=== PATIENT | female | born 1945 | race Caucasian/White ===

== ENCOUNTER 2018-01-16 12:09 | Outpatient (CLI) | payer MEDICARE, BC ==
[~2018-01-16] VITALS: Ht 160 cm; Wt 103.2 kg
--- NOTE | ~2018-01-16 | OP ---
PATIENT NAME: ANDREZ GUTIERREZ MEDICAL RECORD: [id number] :47 LOCATION:D.CAT ADMISSION DATE: SURGEON: CRISTAL ROSENBERG MD DATE OF OPERATION: 01/16/2018 PROCEDURE: Left heart cath, plus 4-vessel, plus PTCA stenting of the diagonal, right femoral artery approach. CATHETERS: A 5-Nigerien sheath, 5/4 left and right Keon, 5/4 pig. The procedure was well tolerated and the patient was returned to esquivel, sheath removed. FINDINGS: Left ventriculography in 30-degree AGUILAR view: Normal wall motion and normal systolic function. CORONARY ANATOMY: LEFT MAIN: Left main is free of disease. LAD: A smallest vessel, actually has a large diagonal system with first diagonal having about 80% stenosis, larger than the LAD itself. CIRCUMFLEX: Free of disease. RIGHT CORONARY ARTERY: Dominant artery and is free of disease. 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 DESCRIPTION OF PROCEDURE: Next, the catheter was pulled proximally. The right common carotid was selectively engaged. This shows smooth-walled vessel, free of disease. Right internal carotid artery is smooth-walled vessel, free of disease. Right external carotid is smooth-walled vessel, free of disease. Next, the catheter was pulled more proximally and the left carotid artery was engaged. This shows a smooth-walled common carotid free of disease, smooth-walled left internal carotid free of disease and a smooth-walled left external carotid free of disease. Next, after a 5-Nigerien sheath was exchanged for a 6-Nigerien sheath, a JL4 guiding catheter provided excellent guide catheter support followed by 300 cm Whisper wire was placed across the occluded LAD down the portion of this vessel. Stent deployed was a 2.5 x 12 mm Fer drug-eluting stent up to 14 atmospheres. Final angiography shows excellent resolution of 80% stenosis, no significant residual. NANY flow was 3 throughout the procedure. Integrilin and heparin were used during the case. Brilinta was loaded in the lab. TRANSINT:[id number] Voice Confirmation ID: [id number] DOCUMENT ID: [id number] CRISTAL ROSENBERG MD at 1305 CC: [id number] DICTATION DATE: 01/16/18 1434 BAG PRINTER: 01/16/18 1614 DEP CLI 01/16/18 [facility] [address] [place] [address]
--- NOTE | ~2018-01-16 | HEMODYNAMI ---
PATIENT:ANDREZ GUTIERREZ MEDICAL RECORD: [id number] : 47 LOCATION:DTAMMY ADMISSION DATE: 01/16/18 Generatedon:01/16/201814:32 Patient name: ANDREZ GUTIERREZ Patient #: [id number] SSN: : 1945 Date of study: 01/16/2018 Page: Of Hemodynamic Procedure Report Patient Data Patient Demographics Procedure consent was obtained First Name: ANDREZ Gender: Female Last Name: MATT : 1945 Patient #: [id number] Age: 72 year(s) Race: Unknown Additional ID: [id number] Contact details Address: [address] [place] [address] State: [place] City: [place] Zip code: [address] Past Medical History Allergies Allergen Reaction Date Comments Reported Sulfa drugs 01/16/2018 Admission Admission Data Admission Date: 01/16/2018 Admission Time: 12:09 Lab Results Lab Result Date: 01/16/2018 Lab Result Time: 0:00 Biochemistry Name Units Result Min Max BUN mg/dl 14 --(--*-)-- 7 18 Creatinine mg/dl 0.9 --(-*--)-- 0.6 1.3 CBC Name Units Result Min Max Hemoglobin g/dl 15.3 --(-*--)-- 13.5 17.5 Procedure Procedure Types Cath Procedure Diagnostic Procedure [facility] w/Coronaries Sedation Charges Moderate Sedation up to 15 minutes PCI Procedure Coronary Stent Coronary Stent Initial Peripheral Cath Diagnostic Procedure Speed Winder Peripheral Procedures Four Vessel Arteriogram Procedure Description Procedure Date Procedure Date: 01/16/2018 Procedure Start Time: 14:00 Procedure End Time: 14:26 Procedure Staff Name Function Robbin Ho MD Performing Physician Jason Mandel RT Color Separation Photographer Anna Arzate RT Monitor Megan Madsen RT Scrub Janae Willard RN Color Separation Photographer Olga Martin RN Color Separation Photographer Procedure Data Cath Procedure Fluoroscopy Diagnostic fluoroscopy Total fluoroscopy Time: 6.6 time: 6.6 min min Diagnostic fluoroscopy Total fluoroscopy dose: dose: 1174 mGy 1174 mGy Contrast Material Contrast Material Type Amount (ml) Isovue 300 152 Entry Location Entry Primary Successful Side Size Upsize Upsize Entry Closure Succes sful Closure Location (Fr) 1 (Fr) 2 (Fr) Remarks Device Remarks Femoral Right 5 Fr 6 Fr Exoseal artery Short Estimated blood loss: 10 ml Diagnostic catheters Device Type Used For End Catheter Placement MULTIPACK JL 4.0 5Fr Procedure catheter MULTIPACK 3DRC 5Fr Procedure catheter MULTIPACK Pigtail 5 Fr Procedure catheter Procedure Complications No complications Procedure Medications Medication Administration Route Dosage 0.9% NaCl I.V. 100 ml/hr Lidocaine 2% added to field 20 Heparin Flush Bag added to field 2 bags (1000units/500ml NS) Oxygen etCO2 Nasal cannula 2 l/min Versed I.V. 2 mg Fentanyl I.V. 100 mcg Versed I.V. 1 mg Fentanyl I.V. 50 mcg Heparin Bolus I.V. 4000 units Integrilin (Bolus I.V. 9 ml 2mg/ml) Brilinta P.O. 180 mg Hemodynamics Rest HGB: 15.3 (g/dl) Heart Rate: 81 (bpm) Pressure Samples Time Site Value (mmHg) Purpose Heart Use Rate(bpm) 14:09 LV 168/21,28 Snapshot 87 14:09 AO 157/81(114) Pullback 72 Gradients Valve Time Site Site 2 Mean SEP/DFP Peak To Heart Use 1 (mmHg) (sec/min) Peak Rate (mmHg) (bpm) Aortic 14:09 LV AO 26 15 72 157/81(114) Calculations Valve P-P Mean Valve Index Valve Source Name Gradient Area Flow (cm2) Aortic 26 26 Snapshots Pre Cath Intra NCS Post Cath Vital Signs Time Heart Resp SPO2 etCO2 NIBP (mmHg) Rhythm Pain Sedation Rate (ipm) (%) (mmHg) Status Level (bpm) 13:46:38 78 21 96 31 152/81(107) NSR 0 (11) 10(A) , No pain 13:50:50 79 18 95 27.1 149/78(104) NSR 0 (11) 10(A) , No pain 13:55:02 77 13 97 23 126/75(86) NSR 0 (11) 10(A) , No pain 13:59:14 82 15 95 24.8 144/70(101) NSR 0 (11) 10(A) , No pain 14:03:32 84 32 97 26.3 138/75(110) NSR 0 (11) 10(A) , No pain 14:07:48 89 30 98 29.3 151/75(118) NSR 0 (11) 10(A) , No pain 14:12:10 86 33 97 23 144/70(100) NSR 0 (11) 10(A) , No pain 14:16:28 87 15 99 27.1 115/70(103) NSR 0 (11) 10(A) , No pain 14:21:27 87 14 98 24.1 154/75(111) NSR 0 (11) 10(A) , No pain 14:25:45 80 39 98 25.5 137/75(104) NSR 0 (11) 10(A) , No pain Medications Time Medication Route Dose Verified Delivered Reason Notes Effectiveness by by 13:49:59 0.9% NaCl I.V. 100 Robbin Janae used for ml/hr [facility] procedure MD GAMBINO 13:50:08 Lidocaine 2% added 20ml Robbin Siegel for local to vial [facility] anesthetic field MD CHIRINOS 13:50:17 Heparin Flush added 2 Robbin Robbin used for Bag to bags [facility] procedure (1000units/500ml field MD CHIRINOS NS) 13:50:30 Oxygen etCO2 2 Robbin Robbin used for Nasal l/min [facility] procedure cannula MD CHIRINOS 13:59:16 Versed I.V. 2 mg Robbin Janae for sedation [facility] Willard MD, RN 13:59:24 Fentanyl I.V. 100 Robbin Janae for sedation mcg [facility] Brett Willard MD, RN 14:09:05 Versed I.V. 1 mg Robbin Janae for sedation [facility] Brett Willard MD, RN 14:09:10 Fentanyl I.V. 50 Robbin Janae for sedation mcg [facility] Brett Willard MD, RN 14:11:55 Heparin Bolus I.V. 4000 Robbin Janae for verif ied units [facility] anticoagulation w/ Dr. MD GAMBINO [place] 14:15:00 Integrilin I.V. 9 ml Robbin Janae for waste d 1 (Bolus 2mg/ml) [facility] Will[facility] anticoagulation jose angel CHIRINOS RN 14:15:43 Brilinta P.O. 180 Robbin Janae for mg [facility] Willard anticoagulation skiver box toe Log Time Note 13::33 Signed procedure consent form obtained from patient. 13:20:36 Time tracking: Regular hours (M-F 7:00 - 5:00) 13:20:39 Plan of Care:Hemodynamics will remain stable., Cardiac rhythm will remain stable., Comfort level will be maintained., Respiratory function will remain adequate., Patient/ family verbilizes understanding of procedure., Procedure tolerated without complication., Recovers from procedure without complications.. 13:22:22 Patient allergic to Sulfa drugs 13:22:35 H&P Date Dictated: 12/22/2017 Within 30 days and on chart., H&P Addendum completed by physician on day of procedure. (MUST COMPLETE FOR ALL OUTPATIENTS). 13:23:26 Lab Result : BUN 14 mg/dl 13::26 Lab Result : Hemoglobin 15.3 g/dl 13:23: Lab Result : Creatinine 0.9 mg/dl 13:31:10 Jason Mandel RT(R) sent for patient. Start room use. 13:37:17 Patient received from Pre/Post Procedure Room to CCL 2 Alert and oriented. Tansferred to table in Supine position. 13:37:18 Warm blankets applied, and glynn hugger turned on for patient comfort. 13:37:19 Correct patient and procedure confirmed by team. 13:37:19 ECG and BP/O2 sat monitors applied to patient. 13:45:26 Vital chart was started 13:45:27 Baseline sample Acquired. 13:45:30 Rhythm: sinus rhythm 13:45:32 Full Disclosure recording started 13:45:33 Pre-procedure instructions explained to patient. 13:45:33 Pre-op teaching completed and patient verbalized understanding. 13:45:35 Family in waiting room. 13:45:37 Patient NPO since Midnight. 13:45:42 Is the patient allergic to Iodine/contrast media? No. 13:45:43 Is patient on blood thinner?No 13:45:46 Patient diabetic? No. 13:45:47 ----Pre-sedation anethsthesia assessment.---- 13:45:52 Previous problem with sedation/anesthesia? No ? 13:45:53 Snore? No 13:45:55 Sleep apnea? No 13:45:57 Deviated septum? No 13:45:59 Opens mouth fully? Yes 13:46:00 Sticks out tongue? Yes 13:46:02 Airway obstruction? No ? 13:46:03 Dentures? No ? 13:46:07 Pre procedure: right dorsailis pedis pulse 2+ Normal; easily identifiable; not easily obliterated 13:46:09 Patient pain scale 0/10 ?. 13:46:21 IV patent on arrival in left hand with 0.9% NaCl at 10ml/hr. 13:46:28 Lab results completed and on chart. 13:46:31 Right groin area was prepped with chlora-prep and draped in sterile fashion 13:46:32 Alarms reviewed by R. N. 13:46:32 Sharps counted by scrub and verified by R.N. 13:46:34 Physician arrived 13:46:35 --------ALL STOP TIME OUT------ 13:46:35 Final Timeout: patient, procedure, and site verified with staff and physician. All members of the team are in agreement. 13:46:37 Right groin site verified by team. 13:46:42 Physical assessment completed. ASA score P 2 - A patient with mild systemic disease as per Robbin Ho MD. 13:46:45 Sedation plan: IV Moderate Sedation Medication:Versed, Fentanyl 13:48:35 Use device set Femoral Dx 13:48:36 ACIST Syringe (85401) opened to sterile field. 13:48:36 Bag Decanter (2001S) opened to sterile field. 13:48:37 Medline Cath Pack ([id number]) opened to sterile field. 13:48:37 DIAGNOSTIC WIRE .035 260cm J wire (045718) opened to sterile field. 13:48:41 ACIST Hand Control (97902) opened to sterile field. 13:48:41 ACIST Manifold (56383) opened to sterile field. 13:48:42 DIAGNOSTIC Multipack 5Fr catheter set (IG0304) opened to sterile field. 13:48:43 Tegaderm 4 x 4 (1626W) opened to sterile field. 13:48:47 SHEATH Prelude 5Fr 0.035 (MTM-6A-54-035) opened to sterile field. 13:49:59 0.9% NaCl 100 ml/hr I.V. was administered by Janae Willard RN; used for procedure; 13:50:08 Lidocaine 2% 20ml vial added to field was administered by Robbin Ho MD; for local anesthetic; 13:50:17 Procedure started. 13:50:17 Heparin Flush Bag (1000units/500ml NS) 2 bags added to field was administered by Robbin Ho MD; used for procedure; 13:50:30 Oxygen 2 l/min etCO2 Nasal cannula was administered by Robbin Ho MD; used for procedure; 13:53:17 Zero performed for pressure channel P1 13:59:16 Versed 2 mg I.V. was administered by Janae Willard RN; for sedation; 13:59:24 Fentanyl 100 mcg I.V. was administered by Janae Willard RN; for sedation; 14:00:15 Local anesthetic to right femoral artery with Lidocaine 2% by Robbin Ho MD.INITIAL ACCESS ONLY 14:01:17 A 5 Fr sheath was inserted into the Right Femoral artery 14:01:27 A MULTIPACK JL 4.0 5Fr catheter was advanced over the wire and used for Procedure. 14:03:15 LCA angiography performed. 14:03:18 Catheter removed. 14:03:25 A MULTIPACK 3DRC 5Fr catheter was advanced over the wire and used for Procedure. 14:04:34 RCA angiography performed. 14:07:33 Right carotid angiography performed. 14:08:09 Left carotid angiography performed. 14:08:14 Catheter removed. 14:08:24 A MULTIPACK Pigtail 5 Fr catheter was advanced over the wire and used for Procedure. 14:09:04 LV gram done using AGUILAR 14:09:05 Versed 1 mg I.V. was administered by Janae Willard RN; for sedation; 14::06 Injector settings: Ml/sec: 10, Volume: 20, 14:09:10 Fentanyl 50 mcg I.V. was administered by Janae Willard RN; for sedation; 14::42 LV hemodynamics recorded. 14:09:50 EF : 50 % 14:09:55 Catheter removed. 14:10:06 SHEATH 6FR [place] (GGC910) opened to sterile field. 14:10:14 INFLATOR Merit BasixCompak (YO6887) opened to sterile field. 14:10:14 WHISPER 300cm guide wire ([id number]) opened to sterile field. 14:11:05 GUIDE 6FR JL 4.0 catheter ([id number]) opened to sterile field. 14:11:15 Sheath upsized to a 6 Fr Short. 14:11:55 Heparin Bolus 4000 units I.V. was administered by Janae Willard RN; for anticoagulation; verified w/ Dr. Glynn 14:12:06 6 Fr JL 4 guide catheter was inserted over the wire 14:14:14 WHISPER 300 wire advanced. 14:15:00 Integrilin (Bolus 2mg/ml) 9 ml I.V. was administered by Janae Willard RN; for anticoagulation; wasted 1 ml 14:15:43 Brilinta 180 mg P.O. was administered by Janae Willard RN; for anticoagulation; 14:18:43 Place stent Inflation Number: 1 A EARNESTINE RX 2.5 x 12 stent ([id number]) was prepped and advanced across the 1st Diag. The stent was deployed at 14 ARNIE for 0:20 (min:sec). 14:19:13 Stent catheter was removed intact over wire. 14:19:14 Wire removed. 14:19:15 Guide catheter removed. 14:19:41 EXOSEAL 6Fr (EX600) opened to sterile field. 14:19:59 Sheath removed intact; hemostasis achieved with Exoseal to the Right Femoral artery. 14:21:32 Procedure ended.(Physican Out) 14:22:16 Fluoroscopy time 06.60 minutes. 14:22:20 Fluoroscopy dose: 1174 mGy 14:22:20 Flurop Dose total: 1174 14:22:24 Contrast amount:Isovue 300 152ml. 14:22:26 Sharps counted by scrub and verified by R.N. 14:22:30 Post-op/insertion site Right Femoral artery dressed using a 4 x 4 and Tegaderm. 14:22:33 Post right femoral artery:stable, soft, clean and dry 14:22:37 Post-procedure physical assessment completed. ASA score P 2 - A patient with mild systemic disease as per Robbin Ho MD. 14:22:40 Post procedure rhythm: unchanged. 14:22:42 Estimated blood loss: 10 ml 14:22:43 Post procedure instruction explained to patient.Patient verbalizes understanding. 14:22:44 Patient needs reinforcement of post procedure teaching. 14:23:38 Procedure type changed to Cath procedure, Diagnostic procedure, LHC, LHC w/Coronaries, Sedation Charges, Moderate Sedation up to 15 minutes, PCI procedure, Coronary Stent, Coronary Stent Initial, Peripheral Cath Diagnostic Procedure, Speed Winder Peripheral Procedures, Four Vessel Arteriogram 14:26:34 Procedure and supply charges have been captured, reviewed, submitted and are correct. 14:26:36 Procedure Complication : No complications 14::38 Vital chart was stopped 14::38 See physician's report for complete and final results. 14::41 Report given to Pre/Post Procedure Room. 14:26:43 Patient transfered to Pre/Post Procedure Room with Bed. 14::45 Procedure ended. 14::45 Full Disclosure recording stopped 14:26:49 End room use (Document Last) 14:27:09 FEMSTOP Gold ([id number]) opened to sterile field. 14:27:19 Femstop placed over the right femoral artery at 160 mmHg. Hemostasis achieved. Intervention Summary Intervention Notes Time ActionType Lesion and Equipment Used Action# Pressure Duration Attributes 14:18:43 Place stent 1st Diag EARNESTINE RX 2.5 x 1 14 00:20 12 stent ([id number]) Device Usage Item Name Manufacture Quantity Catalog Number Hospital Part Current Minimal Lot# / Charge Number Stock Stock Serial# Code ACIST Syringe Acist 1 86567 333203 824088 795889 20 (82253) Medical Systems Inc Bag Decanter Microtek 1 2001S 370405 57939 187240 5 () Medical Inc. Medline Cath Cardinal 1 [id number] 229954 56120 264917 5 Pack Health ([id number]) DIAGNOSTIC WIRE [facility] [place] 1 123919 017435 401622 599722 30 .035 260cm J wire (137313) ACIST Hand Acist 1 29899 307577 275108 537736 5 Control (39658) [employer] Systems Inc ACIST Manifold Acist 1 07211 475148 185997 109778 5 (79181) [employer] Systems Inc DIAGNOSTIC Cardinal 1 [id number] 944306 81263 377356 30 Multipack 5Fr Health catheter set (LB7356) Tegaderm 4 x 4 3M 1 1626W 073477 972675 487093 5 (1626W) SHEATH Prelude Merit 1 [id number] 719349 381118 989647 5 5Fr 0.035 Medical (EEA-6Y-76-035) MULTIPACK JL Cardinal 1 890322 5 4.0 5Fr Health catheter MULTIPACK 3DRC Cardinal 1 173170 5 5Fr catheter Health MULTIPACK Cardinal 1 602652 5 Pigtail 5 Fr Health catheter SHEATH 6FR Terumo 1 CYS497 436646 637025 421047 40 [place] (JJH596) INFLATOR Merit Merit 1 AT4488 930837 081309 209915 15 [facility] HospitalIs[facility] Sciences Medical (QD2709) WHISPER 300cm Guzman 1 [id number] 179104 793699 056963 5 guide wire Vascular ([id number]) GUIDE 6FR JL Medtronic 1 [id number] 725775 71243 577428 1 4.0 catheter (MM7YP42) EARNESTINE RX 2.5 x Medtronic 1 [id number] 122763 1983149 574282 5 [id number] 12 stent ([id number]) EXOSEAL 6Fr Cardinal 1 EX600 528833 151929 148062 10 (EX600) Health FEMSTOP Gold [facility] [place] 1 D50566 837025 246368 636013 5 ([id number]) Signature Audit [place] Stage Time Signature Unsigned Intra-Procedure 01/16/2018 Anna Arzate 2:32:09 PM RT(R) Signatures Monitor : Anna Arzate Signature : RT Date : Time : [facility] [address] [place] [address]
[2018-01-16] MEDS ORDERED: BUMEX2 MG PO (12:31)
[2018-01-16] MEDS ORDERED: MOBIC7.5 MG PO (12:31)
[2018-01-16] MEDS ORDERED: LISINOPRIL10 MG PO (12:31)
[2018-01-16] MEDS ORDERED: K-TAB10 MEQ PO (12:32)
[2018-01-16] MEDS ORDERED: MAGNESIUM OXID250 MG PO (12:32)
[2018-01-16] MEDS ORDERED: BAYER CHEWABLE81 MG PO (12:32)
[2018-01-16] MEDS ORDERED: TYLENOL PM1 TAB PO (12:32)
[2018-01-16 12:41] VITALS: BP 130/59; Ht 160 cm; Wt 103.2 kg
[2018-01-16 12:47] LABS: BASOPHILS 0.7 % (0-2); EOSINOPHILS 5.1 % (0-7); HEMATOCRIT 43.1 % (36.0-48.0); HEMOGLOBIN 15.3 g/dL (12-16); LYMPHOCYTES 43.4 % (15-50); MCH 32.3 pg (26.0-34.0); MCHC 35.5 g/dL (31.0-37.0); MCV 91.1 fL (80.0-100.0); MEAN PLATELET VOLUME 10.3 fL (7.4-10.4); MONOCYTES 11.6 % (2-11); NEUTROPHILS 39.2 % (40-80); PLATELET COUNT 113 10x3/uL (130-400); RBC 4.73 10x6/uL (4.00-5.40); RDW 13.1 % (11.5-14.5); WBC 5.5 10x3/uL (4.8-10.8)
[2018-01-16 13:00] LABS: ANION GAP 11.9 mmol/L (8-16); CARBON DIOXIDE 23.4 mmol/L (21.0-32.0); CREATININE - SERUM 0.9 mg/dL (0.6-1.3); POTASSIUM - SERUM 4.3 mmol/L (3.5-5.1)
[2018-01-16] MEDS ORDERED: BRILINTA90 MG PO (14:43)
== END 2018-01-16 18:30 | disposition home or self-care (01) ==
LOC: D.CATH 12:09
PROVIDERS: Internal Medicine Interventional Cardiology
DX: I25.119 Atherosclerotic heart disease of native coronary artery with unspecified angina pectoris (principal); Z01.812 Encounter for preprocedural laboratory examination
CPT/HCPCS: 36222; 93458; C9600

== ENCOUNTER 2018-07-14 22:08 | Observation (INO) | payer MEDICARE, BC ==
[~2018-07-14] VITALS: Ht 160 cm; Wt 85.0 kg
[~2018-07-14 22:08] MED LIST: BAYER CHEWABLE81 MG PO; BRILINTA90 MG PO; BUMEX2 MG PO; K-TAB10 MEQ PO; LISINOPRIL10 MG PO; MAGNESIUM OXID250 MG PO; MOBIC7.5 MG PO; TYLENOL PM1 TAB PO
[2018-07-14 22:54] VITALS: BP 131/59
[2018-07-14 23:11] LABS: HEMATOCRIT 40.6 % (36.0-48.0); HEMOGLOBIN 13.7 g/dL (12-16); LYMPHOCYTES 47.6 % (15-50); MCH 31.8 pg (26.0-34.0); MCHC 33.7 g/dL (31.0-37.0); MCV 94.2 fL (80.0-100.0); MEAN PLATELET VOLUME 10.6 fL (7.4-10.4); MONOCYTES 12.6 % (2-11); NEUTROPHILS 35.8 % (40-80); PLATELET COUNT 99 10x3/uL (130-400); RBC 4.31 10x6/uL (4.00-5.40); RDW 12.8 % (11.5-14.5)
--- NOTE | 2018-07-14 23:36 | NUR ---
PT AMBULATED TO BEDSIDE COMMODE WITH ASSISTANCE WITHOUT DIFFICULTY. PT URINATED AND SAMPLE SENT TO LAB FOR TESTING.
[2018-07-14 23:38] LABS: PROTIME 12.7 SECONDS (11.6-15.0)
[2018-07-14 23:42] LABS: APPEARANCE CLEAR (CLEAR); BILIRUBIN NEGATIVE (NEGATIVE); COLOR YELLOW (YELLOW); GLUCOSE NEGATIVE (NEGATIVE); KETONE NEGATIVE (NEGATIVE); NITRITE NEGATIVE (NEGATIVE); PROTEIN NEGATIVE (NEGATIVE); UROBILINOGEN NORMAL (NORMAL)
[2018-07-14 23:43] LABS: BACTERIA MANY /hpf (NONE SEEN); EPITHELIAL CELLS NSEEN /hpf (0-5); RED CELLS - URINE RARE /hpf (0-5)
[2018-07-14 23:49] LABS: ALBUMIN 3.4 g/dL (3.4-5.0); ALKALINE PHOSPHATASE 81 U/L (46-116); ALT (SGPT) 18 U/L (10-68); BILIRUBIN - TOTAL 0.38 mg/dL (0.2-1.3); CALC OSMOLALITY 281 mosm/kg (275-300); CARBON DIOXIDE 25.4 mmol/L (21.0-32.0); CHLORIDE - SERUM 105 mmol/L (98-107); CKMB 0.3 U/L (0.0-3.6); GLUCOSE 94 mg/dL (74-106); POTASSIUM - SERUM 3.9 mmol/L (3.5-5.1); PROTEIN - SERUM 6.5 g/dL (6.4-8.2); SODIUM 141 mmol/L (136-145); UREA NITROGEN 16 mg/dL (7-18)
[2018-07-14 23:52] LABS: TROPONIN-I < 0.017 ng/mL (0.000-0.060)
[2018-07-14 23:55] LABS: APTT 21.6 SECONDS (22.8-39.4)
[2018-07-15] VITALS (8 sets, daily range): BP systolic 114–136; BP diastolic 50–65; Ht 160 cm; Wt 85.0 kg
[2018-07-15 00:07] LABS: MAGNESIUM - SERUM 2.2 mg/dL (1.8-2.4); eGFR NON AFRICAN AMERICAN 58 mL/min (90-120)
--- NOTE | 2018-07-15 00:14 | NUR ---
ICE PACK APPLIED TO HEAD PER GRECIA MADRID.
[2018-07-15 00:28] LABS: CREATINE KINASE 52 UL (21-215)
--- NOTE | 2018-07-15 00:55 | NUR ---
PATIENT ARRIVED ON UNIT VIA WHEELCHAIR BY HOSPITAL STAFF VITALS STABLE, ORIENTATED TO ROOM AND STAFF.
--- NOTE | 2018-07-15 01:30 | NUR ---
ADMISSION ASSESSMENT COMPLETE. PATIENT DENIES ANY NEEDS. CALL LIGHT IN REACH.
--- NOTE | 2018-07-15 09:00 | NUR ---
ALERT AND ORIENTED X4. ORTHOSTATIC BP COMPLETE AND REPORTED TO . LAYING- 133/50, HR-69. SITTING- 136/56, HR-74. STANDING- 135/59, HR-72. REQUEST RED ALARM TO BE TURNED OFF. RELEASE FORM SIGNED AND ALARM DISARMED. FAMILY AT BEDSIDE. REPORTS JAW LOCKING WHEN EATING. XRAY ORDERED. DENIES ANY OTHER NEEDS AT THIS TIME. CONTINUE PLAN OF CARE AND SAFETY PRECAUTIONS. SINUS RHYTHM ON TELEMETRY.
--- NOTE | 2018-07-15 20:09 | NUR ---
INITIAL ROUNDS COMPLETED AT 1910 HRS. PT DENIED ANY DISCOMFORT. ASSSESSMENTCOMPLETED AT 1950 HRS. SR PER CM HR 61. PT ALERT AND ORIENTED TO PERSON, PLACE ANDTIME. MAE. AGUILA. FOLLOWS COMMANDS. IV TOR HANDWITH NS AT 100CC/HR. IV PATENT. LUNGS CTA. ABD SOFT WITH ACTIVE BS NOTED. SMALL KNOT NOTED TO BACK OF R SIDE OF HEAD. ABRASION NOTED TO RFH AND UNDER R EYE. BRUISE AND SMALL SCAB NOTED TO R KNEE. O2 2LNC. PT SIGNED RELAESE FORM RESPONSIBILITY REGARDING BED ALARMS. DAUGHTER AT BEDSIDE. SR UP X2, CALL LIGHT WITHIN REACH.
--- NOTE | 2018-07-15 21:45 | NUR ---
PM MEDS GIVEN. PT CURRENTLY RESTING WITH EYES CLOSED. RESP EVEN AND REGULAR. SR UP X2, CALL LIGHT WITHIN REACH.
--- NOTE | 2018-07-16 00:25 | NUR ---
PT AWAKE; DENIES ANY DISCOMFORT. SR UP X2, CALL LIGHT WITHIN REACH.
--- NOTE | 2018-07-16 02:18 | NUR ---
PT RESTING WITH EYES CLOSED. RESP EVEN AND REGULAR. SR UP X2, CALL LIGHT WITHIN REACH.
[2018-07-16 03:55] VITALS: BP 127/64
--- NOTE | 2018-07-16 04:24 | NUR ---
PT RESTING WITH EYES CLOSSED. RESP EVEN AND REGULAR. SR UP XS2, CALL LIGHT WITHIN REACH.
[2018-07-16 06:31] LABS: ALBUMIN 3.3 g/dL (3.4-5.0); ANION GAP 12.5 mmol/L (8-16); BILIRUBIN - TOTAL 0.38 mg/dL (0.2-1.3); CALCIUM 8.7 mg/dL (8.5-10.1); CARBON DIOXIDE 25.2 mmol/L (21.0-32.0); CREATININE - SERUM 0.8 mg/dL (0.6-1.3); POTASSIUM - SERUM 3.7 mmol/L (3.5-5.1); PROTEIN - SERUM 6.5 g/dL (6.4-8.2)
[2018-07-16 06:38] LABS: HEMATOCRIT 38.5 % (36.0-48.0); MCH 31.5 pg (26.0-34.0); MCHC 33.8 g/dL (31.0-37.0); MCV 93.2 fL (80.0-100.0); MEAN PLATELET VOLUME 11.3 fL (7.4-10.4); PLATELET COUNT 115 10x3/uL (130-400); RBC 4.13 10x6/uL (4.00-5.40); RDW 13.1 % (11.5-14.5); WBC 3.7 10x3/uL (4.8-10.8)
--- NOTE | 2018-07-16 06:51 | NUR ---
VSS THROUGHOUT NIGHT. SR PER CM. PT DENIED ANY DISCOMFORT. NEEDS MET; WILL CONTINUE TO MONITOR.
[2018-07-16] MEDS ORDERED: MACRODANTIN50 MG PO (07:44)
--- NOTE | 2018-07-16 07:44 | HP ---
PATIENT: ANDREZ GUTIERREZ MEDICAL RECORD: [id number] ACCOUNT: [id number] LOCATION:[address] : [birth year] ADMISSION DATE: 07/15/18 PCP: MEHREEN MOLINA MD HISTORY AND PHYSICAL EXAMINATION REASON FOR ADMISSION: Fall, head trauma. HISTORY OF PRESENT ILLNESS: The patient is a 73-year-old female who recently underwent a PTCA of the LAD 2 months ago. She is on Brilinta. She has been staying at the hospital caring for her djuhrx-[id number]-vns for the last 48 hours and had a little sleep. She went home and slept and then got up to go to the bathroom. She went to the bathroom and she sat down on the commode. She fainted, falling forward, hitting her head anteriorly and then posteriorly. She denies loss of consciousness. Now has headache and left jaw pain. She came to the ED where she was neurologically intact but due to the fact the patient is on Brilinta with head trauma, recommended admission, observation, and neuro checks. This morning, she is having trouble with pain in her left jaw and it clicks and pops when she opens it deep. She does have slight right frontal headache and a large hematoma on her scalp. Denies chest pain. PAST MEDICAL HISTORY: Obesity, essential hypertension, depression due to loss of spouse. History of diverticulitis, history of shingles, restless leg syndrome, chronic vertigo, and osteoarthritis. PAST SURGICAL HISTORY: Recent percutaneous transluminal coronary angioplasty of the LAD with drug-eluting stent, history of appendectomy, and cholecystectomy. FAMILY HISTORY: Father at 60 of MS. Brother at 58 of MS. Sister with gastric cancer. CURRENT MEDICATIONS: Bumex 1 mg b.i.d., meloxicam 15 mg daily, lisinopril 10 mg daily, potassium ER 10 mEq 2 capsules daily, and meclizine 25 mg t.i.d. p.r.n. Brilinta 90 mg p.o. b.i.d. and Tylenol PM 2 at bedtime for sleep and aspirin 81 mg chewable daily, magnesium oxide 250 mg p.o. daily. ALLERGIES: SULFA. SOCIAL HISTORY: , has a daughter who lives in town is with her today. REVIEW OF SYSTEMS: GENERAL: The patient has felt well, has lost 40 pounds in weight loss diet. HEENT: No recent visual change, sinus congestion, sore throat. Now has pain in her left jaw, it clicks when she opens her mouth widely. Has slight right frontal headache and hematoma on her scalp. No visual changes. RESPIRATORY: No severe cough or exertional chest pain, or claudication. CARDIAC: Her edema has improved. GASTROINTESTINAL: No nausea, vomiting, change in stools or blood per rectum. GENITOURINARY: Mild stress incontinence, mild dysuria. GYNECOLOGIC: No vaginal bleeding. ENDOCRINE: Denies polyuria, polydipsia, heat or cold intolerance. NEUROLOGIC: History of stroke, TIA, or vascular headaches. PSYCHIATRIC: Admits to intermittent depressed mood, has gradually improved over time. INTEGUMENT: Bruising on her forehead and scalp. Denies pruritus or previous rash. HISTORY AND PHYSICAL [id number] ANDREZ GUTIERREZ PHYSICAL EXAMINATION: VITAL SIGNS: Blood pressure 133/50 without orthostasis. Pulse is 69 and regular, respirations are 18, and sats 98%. GENERAL: The patient is alert and oriented at this time. HEENT: Normocephalic. She has an abrasion over her right orbit and a hematoma in the right occipital scalp, it is nontender, not actively bleeding. No laceration noted. Pupils equal and reactive. Vision is intact. Oropharynx is unremarkable except for pain in her left TMJ and it clicks when she opens her mouth widely. CHEST: Wall is nontender. NECK: No carotid bruits. She has had previous carotid arteriogram and it was negative. RESPIRATORY: Clear to A and P. HEART: Regular rate without murmur. ABDOMEN: Mildly obese, soft, and nontender. EXTREMITIES: No C, C, and E. NEUROLOGIC: Oriented to person, place, and time. Cranial nerves intact. Gait is unremarkable currently. LABORATORY DATA: Shows a white count of 4000, H&H of 13.7 and 40.6, and platelet count 99,000. Chemistry is normal. Cardiac enzymes are negative. Urinalysis shows bacteriuria. INR is 1.0. ASSESSMENT: 1. Fall with head contusion. 2. Scalp hematoma. 3. Left facial trauma, possible left jaw fracture. 4. History of atherosclerotic heart disease, stable on Brilinta. 5. Urinary tract infection. 6. Hypertension. 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 We will check CT head and facial Bones. Neuro checks, will hold aspirin currently. Further workup pending clinical course. Also, we will culture urine. Place on IV Rocephin. TRANSINT:[id number] Voice Confirmation ID: [id number] DOCUMENT ID: [id number] HISTORY AND PHYSICAL [id number] ANDREZ GUTIERREZ TIMOTHY MD at 0744 CC: [id number] DICTATION DATE: 07/15/18 09 CLAIM TECHNICIAN: 07/15/18 1240 ADM IN [place] [id number] [place] [address]
[2018-07-16 08:28] VITALS: BP 132/68
[2018-07-16 09:14] LABS: BASOPHILS 1 % (0-2); EOSINOPHILS 2 % (0-7); LYMPHOCYTES 37 % (15-50); MONOCYTES 6 % (2-11); NEUTROPHILS 49 % (40-80); PLATELET ESTIMATE DECREASED; ROULEAUX OCC
--- NOTE | 2018-07-16 10:00 | NUR ---
ALERT AND ORIENTED X4. FAMILY AT BEDSIDE. DISCHARGE INSTRUCTIONS GIVEN VERBALLY AND WRITTEN. DISCHARGE PAPERS SIGNED ON CHART. DC RT HAND IV TIP INTACT. ESCORT TO RIDE VIA WHEELCHAIR. REMAINS FREE FROM INJURY.
--- NOTE | 2018-07-17 08:41 | MORECARE ---
CASE MANAGEMENT DISCHARGE SUMMARY PATIENT: ANDREZ GUTIERREZ UNIT: [id number] ADM DATE: 07/15/18 AGE: 73 : 47 SEX: F ROOM/BED: D.2136 AUTHOR: SAW TORRES PHYSICIAN: REFERRING PHYSICIAN: MEHREEN MOLINA MD DATE OF SERVICE: 07/17/18 Discharge Plan Patient Name: ANDREZ GUTIERREZ Facility: [facility]:[place] : 1945 Planned Disposition: Home Anticipated Discharge Date: 07/16/18 Discharge Date: 07/16/2018 Expected LOS: 1 Initial Reviewer: [email or web address] Initial Review Date: 07/17/2018 Generated: 07/17/18 9:41 am Patient Name: ANDREZ GUTIERREZ Page [id number] at 0841 All edits/amendments must be made on the electronic document DICTATION DATE: 07/17/18839 EXECUTIVE KITCHEN MANAGER: JUDITH 07/17/18 0840 RPT#: [id number] DC DATE:07/16/18 STATUS: DIS IN [facility] [address] [place] [address] END OF REPORT
== END 2018-07-16 11:39 | disposition home or self-care (01) ==
LOC: D.ER 22:08 → OBSVTIME 07-15 00:14 → D.M2 07-15 00:14
PROVIDERS: Family Medicine; ADMIT Family Medicine; ATTEND Family Medicine
DX: S00.03XA Contusion of scalp, initial encounter (principal); W18.12XA Fall from or off toilet with subsequent striking against object, initial encounter; E66.9 Obesity, unspecified; I10 Essential (primary) hypertension; F32.9 Major depressive disorder, single episode, unspecified; G25.81 Restless legs syndrome; M19.90 Unspecified osteoarthritis, unspecified site; I25.10 Atherosclerotic heart disease of native coronary artery without angina pectoris; N39.0 Urinary tract infection, site not specified; S00.81XA Abrasion of other part of head, initial encounter; M26.609 Unspecified temporomandibular joint disorder, unspecified side; M48.02 Spinal stenosis, cervical region

== ENCOUNTER → 2019-04-24 09:18 | Outpatient (CLI) | payer MEDICARE, BC ==
[2018-07-15 01:30] VITALS: BMI 33.2
--- NOTE | ~2019-04-24 | EC ---
PATIENT:ANDREZ GUTIERREZ DATE OF SERVICE: 04/24/19 SEX: F MEDICAL RECORD: [id number] DATE OF : 47 LOCATION:D[facility] AGE OF PATIENT: 73 ADMISSION DATE: 04/24/19 REFERRING PHYSICIAN: INTERPRETING PHYSICIAN: CRISTAL ROSENBERG MD ECHOCARDIOGRAM REPORT ECHO CHARGES 4 ECHO COMPLETE Date: 04/24/19 CLINICAL DIAGNOSIS: SYNCOPE H/O CAD/HTN ECHOCARDIOGRAPHIC MEASUREMENTS (adult normal given) AC root (d.<3.7cm) 2.9 cm LV Septum d (<1.2 cm> 0.9 cm Valve Excursion 1.8 cm LV Septum (systole) 1.4 cm Left Atria (s.<4.0cm> 3.9 cm LVPW d(<1.2cm) 0.9 cm RV (d.<2.3cm) 2.5 cm LVPW (sytole) 1.5 cm LV diastole(<5.6CM) 5.9 cm MV E-F(>70mm/sec) cm LV systole 3.8 cm LVOT Diameter 1.8 cm MV exc.(>10mm) cm Est.ejection fraction (50-75%) % DOPPLER: LVIT cm/sec A 104 cm/sec E 66.0 cm/sec LA cm/sec RVSP 22.3 mmHg LVOT 94.0 cm/sec AOP1/2T m/s Asc. Ao 126 cm/sec RVOT 71.0 cm/sec RA cm/sec PA 101 cm/sec AV Gradient Peak 6.4 mmHg AV Mean 3.6 mmHg AV Area 1.9 cm MV Gradient Peak 5.5 mmHg MV Mean 2.0 mmHg MV Area cm COMMENTS: OP - HC Regulatory Product Manager: 1 CLARA BACONOE Admissions Gate Attendant: 3 Dr. Glynn TAPE# PACS Pericardial Effusion N DATE OF SERVICE: Adequate 2D, color flow, spectral Doppler, and M-mode. No LVH. LV internal dimension is normal. Wall motion is normal. EF is greater than or equal to 55%. Aortic valve is tricuspid. No evidence of stenosis by Doppler interrogation. Left atrium normal at 3.9 cm. Mitral valve shows no prolapse. Trace MR. Right-sided chambers are grossly normal. Trace TR. TRANSINT:[id number] Voice Confirmation ID: [id number] DOCUMENT ID: [id number] ECHOCARDIOGRAM REPORT [id number] ANDREZ GUTIERREZ GREGORY A MD CC: [id number] DICTATION DATE: 04/25/19 1249 INTERMISSION COORDINATOR: 04/25/19 1643 DEP CLI 04/24/19 [place] [id number]
[~2019-04-24 09:18] MED LIST changes: +MACRODANTIN50 MG PO
== END | disposition home or self-care (01) ==
LOC: D.HCCECHO 09:18
PROVIDERS: ATTEND Internal Medicine Interventional Cardiology
DX: I10 Essential (primary) hypertension (principal)